=== PATIENT | male | born 1950 | race Caucasian/White ===

== ENCOUNTER 2018-01-12 16:51 | Inpatient (IN) | payer MEDICARE ==
[~2018-01-12 16:51] MED LIST: Dexamethasone 20 MG/5 ML VIAL ONE; Lidocaine 1% PF 5 ML VIAL ONE; Ondansetron HCl/PF 4 MG/2 ML Vial ONE; PHENYLEPHRINE-NS 100 MCG/ML 10 ML SYRINGE ONE; PROPOFOL 200 MG/20 ML VIAL ONE; Succinylcholine Chloride 20 MG/ML 10 ml SYRINGE FS ONE; ePHEDrine/0.9% NaCl/PF SYRINGE 50 mg/10 ml ONE
[2018-01-12] MEDS ORDERED: CEFAZOLIN 1 GM VIAL ONE (17:26)
[2018-01-12] MEDS ORDERED: Adacel (T-DAP) 0.5 ML VIAL ONE (17:26)
--- NOTE | 2018-01-12 17:27 | RAD ---
FOUR VIEWS LEFT HAND: 01/12/18 HISTORY: Left hand injury. FINDINGS: There is a comminuted fracture involving the metacarpal of the left small finger with impaction of fr acture fragments. There is also a transverse fracture involving the middle one third of the left four th metacarpal ring finger with overriding of the fracture fragments and distal fracture fragment disp laced laterally by one full shaft width. No additional fracture is seen and there is no dislocation s een. There is prominent subcutaneous soft tissue swelling about the dorsal and medial aspect of the hand w ith subcutaneous emphysema suggesting laceration. Osteoarthritis involves the interphalangeal joints. IMPRESSION: 1. Comminuted fracture of the left fifth metacarpal with transverse and displaced fracture invol ving the left fourth metacarpal with separation of fracture fragments. 2. Subcutaneous edema as well as laceration and soft tissue irregularity at the medial and dorsa l aspect left hand. POS: [facility]
[2018-01-12] MEDS ORDERED: Bupivacaine PF 0.5% 30 ML VIAL ONE (17:54)
[2018-01-12] MEDS ORDERED: Bacitracin Zinc Ointment 30 gm TUBE ONE ×2 (17:54→22:36)
[2018-01-12 18:00] LABS: #Eosinphils 0.1 thou/uL (0.0-0.7); #Lymphocytes 2.2 thou/uL (1.20-3.40); #Monocytes 0.6 thou/uL (0.11-0.59); #Neutrophils 5.3 thou/uL (1.40-6.50); %Basophils 0.6 % (0.0-1.0); %Eosinophils 1.8 % (0.0-10.0); %Lymphocytes 26.4 % (21.0-51.0); %Monocytes 6.7 % (0.0-10.0); %Neutrophils 64.5 % (42.0-75.0); Hemoglobin 14.6 g/dL (14.0-18.0); Mean Corpuscular Hemoglobin 30.3 pg (27.0-31.0); Mean Corpuscular Volume 86.6 fL (78.0-98.0); Mean Platelet Volume 5.8 fL (7.4-10.4); Platelet Count 241 thou/uL (130-400); RBC Distribution Width 13.1 % (11.5-14.5); Red Blood Cell (RBC) Count 4.83 mill/uL (4.70-6.10); White Blood Cell (WBC) Count 8.2 thou/uL (4.8-10.8)
[2018-01-12 18:23] LABS: ALT (SGPT) 21 U/L (8-55); AST (SGOT) 20 U/L (5-34); Alkaline Phosphatase 66 U/L (40-150); Anion Gap 15 mmol/L (10-20); BUN (Urea Nitrogen) 18 mg/dL (8.4-25.7); Bilirubin, Total 0.9 mg/dL (0.2-1.2); Calc. Creatinine Clearance 0 mL/min (70-130); Calcium 9.1 mg/dL (7.8-10.44); Carbon Dioxide 23 mmol/L (23-31); Chloride 102 mmol/L (98-107); Estimated GFR-MDRD 48; Globulin 2.6 g/dL (2.4-3.5); Glucose 192 mg/dL (80-115); Potassium 3.6 mmol/L (3.5-5.1); Protein, Total 6.6 g/dL (5.8-8.1); Sodium 136 mmol/L (136-145)
--- NOTE | 2018-01-12 18:24 | RAD ---
LEFT FOREARM: 01/12/18 Two views. HISTORY: Injury with pain to forearm. FINDINGS: radius and ulna appear intact. The hand is partially imaged and there is evidence of fractures involving the first and second metaca rpals. IMPRESSION: No evidence of fracture involving the radius or ulna. See dedicated hand x-rays regarding metacarpal fractures. POS: [facility]
[2018-01-12 18:26] LABS: CKMB 2.2 ng/mL (0-6.6); Troponin I Less than 0.010 ng/mL (< 0.028)
[2018-01-12] MEDS ORDERED: Fentanyl 250 MCG/5 ML VIAL ONE (18:40)
[2018-01-12] MEDS ORDERED: Bisacodyl 10 MG SUPP PR PRN (18:46)
[2018-01-12] MEDS ORDERED: Ondansetron HCl/PF 4 MG/2 ML Vial IV PRN (18:46)
[2018-01-12] MEDS ORDERED: Acetaminophen 325 MG TAB PO PRN (18:46)
[2018-01-12] MEDS ORDERED: Promethazine HCl 25 MG/ML VIAL IM PRN (18:46)
[2018-01-12] MEDS ORDERED: Milk Of Magnesia 30 ML UDCUP PO PRN (18:46)
[2018-01-12] MEDS ORDERED: TETANUS AND DIPHTHERIA TOX/PF 0.5 ML DISP.SYRIN IM SCH (19:00)
[2018-01-12] MEDS ORDERED: Communication Order-Pharmacy FS SCH (19:00)
[2018-01-12] MEDS ORDERED: RENALLY ADJUST ALL ANTIBIOTICS FS SCH (19:00)
[2018-01-12] MEDS ORDERED: Aspirin 81 mg Enteric Coated Tablet PO SCH (21:00)
--- NOTE | 2018-01-12 21:48 | RAD ---
LEFT HAND: 01/12/18 Six fluoroscopic views of the left hand are preserved. INDICATIONS: Intraoperative imaging during open reduction internal fixation procedure. IMPRESSION: These films show fixation of fractures involving the fourth and fifth metacarpals. Plate and screws a re placed transfixing these fractures. POS: [facility]
[2018-01-12] MEDS ORDERED: Vancomycin HCl 1.25 GM in Sodium Chloride 0.9% 250 ML 250 ML IVPB SCH (23:00)
[2018-01-12] MEDS ORDERED: Fentanyl 100 MCG/2 ML VIAL ONE (23:12)
[2018-01-12] MEDS ORDERED: Ketorolac Tromethamine 30 MG/ML VIAL ONE (23:19)
[2018-01-13] MEDS: Ketorolac Tromethamine 30 MG/ML VIAL IVP SCH ×5 (00:11→22:24)
[2018-01-13] MEDS: HYDROcodone/Acetaminophen 10/325 mg Tablet PO PRN ×6 (00:12→21:19)
[2018-01-13] MEDS: Aspirin 81 mg Enteric Coated Tablet PO SCH ×3 (00:15→20:18)
[2018-01-13 00:40] VITALS: BMI 29.6
[2018-01-13] MEDS ORDERED: Vancomycin HCl 750 MG in Sodium Chloride 0.9% 250 ML 250 ML IVPB SCH ×2 (11:00→20:00)
[2018-01-13 21:08] VITALS: BP 115/68; TEMP 97.7
--- NOTE | 2018-01-14 15:15 | OP ---
PREOPERATIVE DIAGNOSES: Right small finger and ring finger grade 2 open fractures with a visible ext ensor tendon laceration. POSTOPERATIVE DIAGNOSES: 1. Right small finger and ring finger grade 2 open fractures with a visible extensor tendon lacerati on. Also, with muscle belly avulsion and rupture, extensor digitorum communis portion of the ring fi nger just proximal to the retinaculum leaving it with no attachment for repair. 2. Six-part small finger fracture and 4-part ring finger fracture, metacarpal shaft; and minimal eduin ss contamination. PROCEDURES PERFORMED: 1. Debridement of wound, total 10 cm depth down to include bone. 2. Debridement material associated open fracture. 3. Open reduction and internal fixation of ring finger metacarpal. 4. Open reduction and internal fixation of small finger metacarpal complex fracture technique mandy peña of, A. Requirement of multiple pinning, multiple screws, bridging plate. B. Six-part fragment. C. Requirement for bone grafting, even though with low-grade open fracture; minor bone graft. 5. Minor bone grafting, which would be code [id number]. 6. A 10 cm complex wound closure. ESTIMATED BLOOD LOSS: 50 mL. TOURNIQUET TIME: 120 minutes. ANESTHESIA: General LMA technique by PRINTED CIRCUIT DESIGNER [employer] Anesthesia; no complications; augmented by 30 mL of 0.5% Marcaine block, no epinephrine. DESCRIPTION OF PROCEDURE: After successful general LMA technique, limb was prepped and draped. Cayesha farmer was brought into the field, identified the fracture. The patient had three different wounds; one o magnus the small finger and ring finger interosseous space; one over the long finger, it was 2 mm; and a 3.5 mm wound over the index finger, where there were no fractures in the index and long finger metac arpals. We then with tourniquet inflated and extended, the 2 wounds over the metacarpals to incorpor ate them as one, and then carried them back proximal in order to visualize retinaculum, because initi ally we could not see the tendon, proximal end. The patient then had debridement with following tech niques: Bone debrided with curette, Logan blade, tenotomy scissors using a Brady elevator as well a s Pulsavac 5 liters. Skin debrided with the same except we used a 15-blade knife to help debride román e of the dermis and epidermis that was damaged. Debridement technique was excisional contamination f inding of a mild amount of particles, but minimal. Finally, there was the level including bone, skin , subcutaneous tissue, dermis, and epidermis. After debridement was done extensively, we still could not find the extensor tendon, muscle belly. S o, we extended the incision proximal to the retinaculum without opening the retinaculum, explored the retinaculum front and back, and then we found an area of muscle that was almost 5 cm long that was c ompletely denuded from its origin and this we believe was the muscle belly attached to long extensor digitorum communis tendon to ring finger. Now, this tendon was debrided, and with a plan to do a ten don graft at the end of procedure. The patient's other tendons were intact, and all the wounds were visualized. No fracture of the inde x, thumb, or long finger metacarpal; and we approached both metacarpal fractures by debriding them, e levating them, and there were 6 fragments for the small finger fracture and 4 fragments although with the two being very small for the ring finger. We then finished the irrigation and debridement of th e material associated with open fracture and of the wound separately. We did an open reduction with internal fixation using a 5-hole plate over the fracture of the ring finger; and then for the small f amna. Because of so much comminution, we had to preliminarily fix it with an intraosseous wire x1 t o maintain rotational stability and best fit for angulation minimal accepted because of the comminuti on and desire to maximize the cortices. Then, we placed two separate K-wires to help coapt the fragm ents in medial and lateral direction, and we followed it with a bridging Synthes plate at this time o f 1.5-mm screw plate assembly. We then noticed that we had no malrotation and we prepared to do the tendon grafting. The tendon edges were debrided on the extensor digitorum communis after inspecting and finding it was the primary tendon and not the one connecting . Then, we resected the edges, checked again, an d we could not find any recipient needed for this, so we used a [id number] with the extensor mechan ism to the EDC of the small finger using Pulvertaft wewoo x3 technique securing with 4-0 Prolene tie in a very effective manner. Now, we had done all the debridement and fracture care. Tendon repairs were completed. We finished irrigation with 1 liter of normal saline on bulb syringe pressure, prepa red for closure after the [id number] extensor digitorum communis ring finger and the EDC of karthik woo. Wound closure was complex, required multiple planes of repair in multiple directions and we h ad the best fit. After debridement, the areas had lost skin and was told still had not lost. Tourniquet was deflated after 120 minutes. We obtained hemostasis including proximal to retinaculum. We did not open the retinaculum, so we did not have to involve it. After the wound was closed, the patient completed 30 mL total marcaine block liberty-incisional, had a bulky dressing applied with a pa lmar splint that included the index finger, ring finger, long finger, and small finger. Digits were pink.
--- NOTE | 2018-01-16 13:46 | EKG ---
Test Reason : Blood Pressure : / mmHG Vent. Rate : 080 BPM Atrial Rate : 080 BPM P-R Int : 178 ms QRS Dur : 094 ms QT Int : 388 ms P-R-T Axes : 016 005 042 degrees QTc Int : 447 ms Normal sinus rhythm Normal ECG Confirmed by EDVIN SPANGLER MD ([id number]), editor house organ JASON SIMS ([id number] on 01/16/2018 1:45:31 PM Referred By: Confirmed By:EDVIN SPANGLER MD
== END 2018-01-13 22:42 | disposition home or self-care (01) | DRG 514 ==
LOC: ERS 16:51 → SDC/OP 18:23 → SURG A 22:16
PROVIDERS: ADMIT Orthopaedic Surgery Hand Surgery; ATTEND Orthopaedic Surgery Hand Surgery
PROC: 0PSP04Z Reposition Right Metacarpal with Internal Fixation Device, Open Approach (ICD-10-PCS; principal; 2018-01-12)
PROC: 0PSP04Z Reposition Right Metacarpal with Internal Fixation Device, Open Approach (ICD-10-PCS; 2018-01-12)
PROC: 0LR707Z Replacement of Right Hand Tendon with Autologous Tissue Substitute, Open Approach (ICD-10-PCS; 2018-01-12)
DX: S62.604B Fracture of unspecified phalanx of right ring finger, initial encounter for open fracture (principal); S62.606B Fracture of unspecified phalanx of right little finger, initial encounter for open fracture; W24.0XXA Contact with lifting devices, not elsewhere classified, initial encounter; Y93.89 Activity, other specified; Y92.015 Private garage of single-family (private) house as the place of occurrence of the external cause
CPT/HCPCS: 36415; 80053; 82553; 84484; 85025; 86850; 86900; 86901; 90471; 90715; 93005; 96374; 96375; C1713; J0690; J1100; J1885; J2001; J2270; J2405; J2704; J3010; J3370; J3490; J7050; S0020

== ENCOUNTER 2018-03-08 09:38 | Day surgery (SDC) | payer MEDICARE ==
[2018-03-07 12:40] VITALS: BMI 29.6
[2018-03-08] MEDS ORDERED: Clindamycin/D5W 600 mg/50 ml Premix Bag ONE (10:38)
[2018-03-08 10:47] LABS: #Basophils 0.1 thou/uL (0.0-0.2); #Eosinphils 0.2 thou/uL (0.0-0.7); #Lymphocytes 2.2 thou/uL (1.20-3.40); #Monocytes 0.6 thou/uL (0.11-0.59); #Neutrophils 4.3 thou/uL (1.40-6.50); %Basophils 0.9 % (0.0-1.0); %Eosinophils 2.1 % (0.0-10.0); %Lymphocytes 30.2 % (21.0-51.0); %Monocytes 8.2 % (0.0-10.0); %Neutrophils 58.7 % (42.0-75.0); Hemoglobin 15.7 g/dL (14.0-18.0); Mean Corpuscular HGB CONC 33.2 g/dL (32.0-36.0); Mean Corpuscular Volume 87.3 fL (78.0-98.0); Platelet Count 269 thou/uL (130-400); RBC Distribution Width 12.8 % (11.5-14.5); Red Blood Cell (RBC) Count 5.42 mill/uL (4.70-6.10); White Blood Cell (WBC) Count 7.3 thou/uL (4.8-10.8)
[2018-03-08] MEDS ORDERED: Fentanyl 100 MCG/2 ML VIAL ONE ×3 (12:33→14:56)
[2018-03-08] MEDS ORDERED: Bupivacaine PF 0.5% 30 ML VIAL ONE (12:40)
[2018-03-08] MEDS ORDERED: Bacitracin Zinc Ointment 30 gm TUBE ONE (12:40)
[2018-03-08] MEDS ORDERED: Betamet Acet/Betamet Na Ph 30 MG/5 ML VIAL ONE (12:40)
[2018-03-08] MEDS ORDERED: Ketorolac Tromethamine 30 MG/ML VIAL ONE (14:41)
[2018-03-08] MEDS ORDERED: Ondansetron HCl/PF 4 MG/2 ML Vial ONE (14:52)
[2018-03-08] MEDS ORDERED: Lidocaine 1% PF 5 ML VIAL ONE (14:52)
[2018-03-08] MEDS ORDERED: Dexamethasone 20 MG/5 ML VIAL ONE (14:52)
[2018-03-08] MEDS ORDERED: ePHEDrine/0.9% NaCl/PF SYRINGE 50 mg/10 ml ONE (14:52)
[2018-03-08] MEDS ORDERED: PROPOFOL 200 MG/20 ML VIAL ONE (14:52)
[2018-03-08] MEDS ORDERED: HYDROcodone/Acetaminophen 5/325 mg Tablet ONE (16:16)
--- NOTE | 2018-03-11 12:09 | OP ---
PREOPERATIVE DIAGNOSIS: Left small finger and ring finger joint and joint contractures MP joint, ext ensor tendon adhesions MP joint, fractures nearly completely healed, but clinical radiograph shows ti ghtened extensor mechanisms and pain with these implants. Operation was undertaken to correct both problems. PROCEDURE PERFORMED: 1. At the left small finger: A. Removal of K-wires x3. B. Plate modification with partial removal of plate. C. Dorsal metacarpophalangeal joint capsulotomy. D. Dorsal extensor tendon tenolysis. E. Plate removal, fracture, not completely healed. 2. For the ring finger: A. Extensive tenolysis. B. Dorsal capsulotomy. C. Manipulation under anesthesia. SPECIMEN REMOVED: K-wires, 3 from the small finger. TOURNIQUET TIME: 37 minutes. BLOOD LOSS: 10 mL. FINDINGS: Tight MP joint dorsal capsule, especially ring finger and small finger, and also extensive adhesions to both the skin and plate. DESCRIPTION OF PROCEDURE: After successful general endotracheal anesthesia, the limb was prepped and draped. We then blocked both metacarpals at the carpometacarpal joint level hoping to achieve some type of field block. We exsanguinated the limb, inflated the tourniquet to 350 mmHg pressure and the n using the previous incision, extended on to 5 mm, we identified the painful K-wire distally and rem bernaidne it through the incision. We then removed the central dorsal to palmar and longitudinal ulnar to radial K-wires. The drill bits seen on radiographs were completely buried in bone frontal sagittal oblique planes both clinically and radiographically, so we did not destroy the bones or move it. We then in the area where the drill bit was located on radiographs, cut the 1 hole of the head, no screw s in it which was elevated off the bone approximately 3-4 mm. We then did extensive tenolysis following the tendon from carpometacarpal joint all the way out to e metacarpophalangeal joint, we lifted it up on mass from the bone and on the plate and then doing same thing on the ring finger. We then got to the joint capsule, saw was tight even with passive m otion, released the joint capsule from the metacarpophalangeal joint, head and neck on both the ring and small finger. Now, we could easily achieve 105 degrees small finger and 95 degrees ring finger p assive flexion while flexing the PIP joint. We now had all hardware out, and all tendon release was performed. We then obtained hemostasis and c losed only the epidermis, dermis with 4-0 nylon interrupted mattress pattern. The patient had a bulk y dressing applied and left the operating room in a dorsal block splint with the MP joints at 90 degr ees, and no evidence of anesthetic or operative complication.
== END 2018-03-08 16:45 | disposition home or self-care (01) ==
LOC: SDC 09:38
PROVIDERS: ATTEND Orthopaedic Surgery Hand Surgery
PROC: 0RNV0ZZ Release Left Metacarpophalangeal Joint, Open Approach (ICD-10-PCS; principal; 2018-03-08)
PROC: 0RNV0ZZ Release Left Metacarpophalangeal Joint, Open Approach (ICD-10-PCS; 2018-03-08)
PROC: 0LN80ZZ Release Left Hand Tendon, Open Approach (ICD-10-PCS; 2018-03-08)
PROC: 0LN80ZZ Release Left Hand Tendon, Open Approach (ICD-10-PCS; 2018-03-08)
PROC: 0RP Upper Joints, Removal (ICD-10-PCS; 2018-03-08)
DX: M24.542 Contracture, left hand (principal); T84.84XA Pain due to internal orthopedic prosthetic devices, implants and grafts, initial encounter; S62.601D Fracture of unspecified phalanx of left index finger, subsequent encounter for fracture with routine healing; S62.605D Fracture of unspecified phalanx of left ring finger, subsequent encounter for fracture with routine healing; I48.91 Unspecified atrial fibrillation; K21.9 Gastro-esophageal reflux disease without esophagitis; F14.11 Cocaine abuse, in remission; F12.11 Cannabis abuse, in remission; F15.11 Other stimulant abuse, in remission; Z79.899 Other long term (current) drug therapy; Z98.890 Other specified postprocedural states
CPT/HCPCS: 36415; 85025; 96372; 96374; 96375; 96376; J0702; J1100; J1885; J2001; J2405; J2704; J3010; J3490; S0020

== ENCOUNTER 2023-10-16 10:30 | Outpatient (CLI) | payer MEDICARE | END 2023-10-16 10:31 | disposition home or self-care (01) | LOC: BICMRI 10:30 | PROVIDERS: ATTEND Pediatrics | DX: M17.11 Unilateral primary osteoarthritis, right knee (principal); S83.241A Other tear of medial meniscus, current injury, right knee, initial encounter; M25.461 Effusion, right knee; M71.21 Synovial cyst of popliteal space [Baker], right knee; M25.861 Other specified joint disorders, right knee ==